=== PATIENT | male | born 1950 | race Caucasian/White ===

== ENCOUNTER 2021-10-22 11:03 | Emergency (ER) | payer MEDICARE, OTHER ==
[2021-10-22] MEDS ORDERED: NOREPINEPHRINE 4 MG in SODIUM CHLORIDE 0.9% 250 ML IV ONE (11:10)
[2021-10-22 11:15] VITALS: RESP 18
[2021-10-22 11:16] LABS: Glucose,Whole Blood 268 mg/dL (75-99)
[2021-10-22] MEDS ORDERED: SODIUM CHLORIDE 0.9% 500 ML 500 ML IV ONE (11:29)
[2021-10-22] MEDS ORDERED: SODIUM CHLORIDE 0.9% 1,000 ML IV SCH (11:30)
--- NOTE | 2021-10-22 11:32 | XR ---
EXAMINATION TYPE: XR chest 1V portable DATE OF EXAM: 10/22/2021 COMPARISON: NONE HISTORY: Postcardiac arrest TECHNIQUE: Single frontal view of the chest is obtained. FINDINGS: ET tube approximately 7.5 cm above frances. NG tube seen coursing the abdomen likely at the GE junction. Coarsened interstitium. Mediastinum is somewhat widened. I could not exclude a small ri ght pleural effusion. No sizable pneumothorax. Correlate for bilateral interstitial infiltrates or ve nous congestion. IMPRESSION: 1. NG tube is likely at the level the GE junction. Bilateral interstitial infiltrates correlate for i nterstitial pneumonia versus venous congestion. Likely a degree of COPD. 3. Mediastinum is widened with prominence of the aortic arch. Correlate with CT scan.
[2021-10-22 11:38] LABS: RBC 4.49 m/uL (4.30-5.90)
[2021-10-22 11:39] LABS: Basophils # (A) 0.1 k/uL (0-0.2); Basophils % (A) 1 %; Eosinophils # (A) 0.3 k/uL (0-0.7); Eosinophils % (A) 3 %; HCT 46.6 % (39.0-53.0); Hypochromasia Slight; Lymphocytes # (A) 3.2 k/uL (1.0-4.8); Lymphocytes % (A) 32 %; MCH 31.3 pg (25.0-35.0); MCHC 30.2 g/dL (31.0-37.0); MCV 103.9 fL (80.0-100.0); Macrocytosis Slight; Mean Platelet Volume 7.6; Monocytes # (A) 0.4 k/uL (0-1.0); Monocytes % (A) 4 %; Neutrophils # (A) 5.9 k/uL (1.3-7.7); Neutrophils % (A) 59 %; Platelet Count 187 k/uL (150-450); RDW 12.9 % (11.5-15.5)
[2021-10-22 11:42] LABS: INR 1.1 (<1.2); Prothrombin Time 11.9 sec (9.0-12.0)
[2021-10-22 11:43] LABS: Partial Thromboplastin Time 23.6 sec (22.0-30.0)
[2021-10-22 12:02] LABS: Albumin 3.4 g/dL (3.5-5.0); Calcium 7.9 mg/dL (8.4-10.2); Magnesium 2.1 mg/dL (1.6-2.3); Potassium 3.7 mmol/L (3.5-5.1); Total Bilirubin 0.5 mg/dL (0.2-1.3); Total Protein 5.4 g/dL (6.3-8.2)
[2021-10-22 12:09] LABS: ABG Base Excess -7.9 mmol/L; ABG HCO3 21 mmol/L (21-25); ABG Oxygen Saturation 97.3 % (94-97); ABG PCO2 62 mmHg (35-45); ABG PO2 113 mmHg (83-108); ABG TCO2 23 mmol/L (19-24); Allen Test Performed? Yes
--- NOTE | 2021-10-22 12:12 | CT ---
EXAMINATION TYPE: CT brain wo con DATE OF EXAM: 10/22/2021 COMPARISON: None INDICATION: Status post cardiac arrest DLP: 1169.4 mGycm, Automated exposure control for dose reduction was used. CONTRAST: None CT of the brain is performed utilizing 3 mm thick sections through the posterior fossa and 3 mm thick sections through the remaining calvarium. Study is performed within 24 hours of arrival to the hosp [facility]. Diffuse increase subarachnoid hemorrhage is present throughout the bilateral subarachnoid spaces. Rep ort was called to the emergency room physician Dr. Milan by Dr. Canales 1205 hours 10/22/2021. There is a hyperdense collection at the left hemisphere apex adjacent to the falx measuring 1.2 cm pr evious in the sulcus and is more likely related to subarachnoid hemorrhage. Tiny subdural hematoma wi thout mass effect could potentially be within the differential. No mass lesion is evident. No acute infarcts are evident. Ventricles and sulci are appropriate for the patient age. Small amount of hemorrhage may be within t he posterior horn lateral ventricles and third ventricle and fourth ventricle. No temporal horn dilat ation is evident. Paranasal sinuses and mastoid air cells within the [id number] are clear. Nasogastric tube appears to be present. IMPRESSIONS: 1. Large subarachnoid hemorrhage present bilaterally and diffusely. No focal area is more suspiciou s for localization of source. Some hemorrhage is within the ventricles discussed above.
[2021-10-22 12:18] LABS: ABG PH 7.14 (7.35-7.45)
[2021-10-22] MEDS ORDERED: levETIRAcetam IV 1,500 MG in SALINE 1 100ML.BAG IVPB STA (12:26)
--- NOTE | 2021-10-22 12:39 | CT ---
EXAMINATION TYPE: CT angio thor/abd pel aorta DATE OF EXAM: 10/22/2021 INDICATION: Cardiac arrest. CT DLP: 2648 mGy.cm Automated Exposure Control for Dose Reduction was Utilized. TECHNIQUE AND CONTRAST: CT scan of the chest, abdomen and pelvis is performed without and with IV Contrast, patient injected with 100ml mL of Isovue 370. CT thoracic and abdominal aortic protocol. 3-D reconstruction images wer e generated on an independent workstation and reviewed. COMPARISON: None available FINDINGS: The ascending aorta measures 4 cm. The aortic arch measured 3.3 cm. The descending thoracic aorta laura sures 3.2 cm. The upper abdominal aorta measures 3.7 cm. The lower abdominal aorta measures up to 2.4 cm. A nipple-like projection is seen at the anterior aspect of the aortic arch measuring up to 7 mm. Focal saccular aneurysm is seen arising from the inferior aspect of the aortic isthmus measuring 2.8 cm, likely representing the known aortic aneurysm. Extensive arterial atherosclerotic calcification and tortuosity with multiple atheromatous plaques. H ypoplastic left vertebral artery arising directly from the aortic arch. Reduced enhancement of the in ferior mesenteric artery. Ectatic left common iliac artery measuring up to 2.2 cm. No other significa nt arterial stenosis, occlusion, dissection or other aneurysm. No evidence for aortic rupture. No med iastinal hematoma or collection. No major or central pulmonary embolism. No gross cardiomegaly. No pericardial effusion. Endotracheal tube with the tip is about 4.8 cm proximal to the frances. NG tube with the tip is at the gastroesopha geal junction, further introduction into the stomach is advised. Right femoral vein catheter is noted . Bilateral lower lobe consolidation with air bronchogram within which could be related to atelectasis however associated infection can't be excluded, please correlate clinically. Mild COPD changes. No pa thologically enlarged lymph nodes in the chest, abdomen or pelvis. Suspected hepatic steatosis. Janey lithiasis without evidence of acute cholecystitis. Unremarkable spleen, pancreas and adrenals. Bilateral renal cysts without suspicious feature. Cruz catheter is seen within the urinary bladder. Unremarkable prostate and seminal vesicles. Gaseous distention of the stomach. No evidence of bowel o bstruction. Scattered uncomplicated colonic diverticulosis. No sizable ascites. Left-sided scrotal hy drocele. Multiple bilateral anterior nondisplaced rib fractures. IMPRESSION: Thoracic and abdominal aortic aneurysms as described above. No evidence of aneurysmal rupture. No act adali bleeding seen in the chest, abdomen or the pelvis. Other multiple incidental findings and recomme ndations as detailed above.
--- NOTE | 2021-10-22 12:40 | ED ---
General Adult HPI - General Chief complaint: Cardiac Arrest/CPR Stated complaint: Cardiac Arrest Time Seen by Provider: 10/22/21 11:10 Source: patient, family, EMS, RN notes reviewed, old records reviewed Mode of arrival: EMS Limitations: altered mental status - History of Present Illness Initial comments: 71-year-old male presents as out of Hospital cardiac arrest. Patient apparently had suddenly collapsed in the garage. This was noticed by family apparently very quickly and CPR was initiated by family on scene. Upon arrival paramedics did continue CPR, the patient was intubated by paramedics and resuscitation efforts were guided by ACLS protocol. He received multiple doses of epinephrine and ultimately had return of spontaneous circulation. He was in asystole at the time of initial resuscitation. The family there have been no preceding symptoms. Patient was going about his usual day. He has no history of heart disease. He has history of abdominal aortic aneurysm. He is not currently on any anticoagulation. - Related Data Home Medications Medication Instructions Recorded Confirmed Atorvastatin [Lipitor] 20 mg PO HS 10/22/21 10/22/21 Doxazosin [Cardura] 4 mg PO DAILY 10/22/21 10/22/21 Ezetimibe [Zetia] 10 mg PO DAILY 10/22/21 10/22/21 Finasteride [Proscar] 5 mg PO DAILY 10/22/21 10/22/21 Multivitamins, Thera [Multivitamin 1 tab PO DAILY 10/22/21 10/22/21 (formulary)] Naproxen 500 mg PO BID 10/22/21 10/22/21 Pantoprazole [Protonix] 40 mg PO HS 10/22/21 10/22/21 methocarbamoL [Methocarbamol] 500 mg PO BID 10/22/21 10/22/21 Allergies Allergy/AdvReac Type Severity Reaction Status Date / Time No Known Allergies Allergy Verified 10/22/21 11:14 Review of Systems ROS Statement: Those systems with pertinent positive or pertinent negative responses have been documented in the HPI. ROS Other: All systems not noted in ROS Statement are negative. Past Medical History Past Medical History: Unable to Obtain History of Any Multi-Drug Resistant Organisms: None Reported Past Surgical History: Unable to Obtain Past Psychological History: Unable to Obtain Smoking Status: Unknown if ever smoked Past Alcohol Use History: Unable to Obtain Past Drug Use History: Unable to Obtain General Exam Limitations: no limitations General appearance: obtunded, other (Obtunded. No Spontaneous movement) Eye exam: Present: other (4 mm bilaterally, very sluggish) ENT exam: Present: other (Intubated) Respiratory exam: Present: other (Bilateral breath sounds with BVM) Cardiovascular Exam: Present: regular rate, normal rhythm GI/Abdominal exam: Present: soft. Absent: distended Extremities exam: Absent: normal capillary refill, calf tenderness Neurological exam: Present: other (No spontaneous movement, does not withdraw to pain). Absent: alert, altered, oriented X3, motor sensory deficit Skin exam: Present: warm, dry Course Vital Signs 10/22/21 10/22/21 10/22/21 11:05 11:13 11:19 Pulse Rate 150 H 121 H Respiratory 18 18 Rate Blood Pressure 59/34 158/93 O2 Sat by Pulse 88 L Oximetry Fraction of 100 Inspired Oxygen (FIO2) 10/22/21 10/22/21 10/22/21 11:20 11:24 11:28 Pulse Rate 98 96 Respiratory 18 18 Rate Blood Pressure 74/52 80/67 O2 Sat by Pulse 97 96 Oximetry Fraction of 100 Inspired Oxygen (FIO2) 10/22/21 10/22/21 10/22/21 11:31 11:35 11:40 Pulse Rate 93 92 89 Respiratory 18 18 18 Rate Blood Pressure 83/59 96/53 110/75 O2 Sat by Pulse 97 98 97 Oximetry Fraction of Inspired Oxygen (FIO2) 10/22/21 10/22/21 10/22/21 11:45 11:50 11:55 Pulse Rate 91 82 87 Respiratory 18 18 18 Rate Blood Pressure 116/70 123/87 142/103 O2 Sat by Pulse 97 97 97 Oximetry Fraction of Inspired Oxygen (FIO2) 10/22/21 10/22/21 10/22/21 12:00 12:05 12:10 Pulse Rate 72 68 61 Respiratory 18 18 18 Rate Blood Pressure 147/87 152/87 152/87 O2 Sat by Pulse 96 96 95 Oximetry Fraction of Inspired Oxygen (FIO2) 10/22/21 10/22/21 10/22/21 12:15 12:25 12:44 Pulse Rate 56 L 48 L 44 L Respiratory 18 18 18 Rate Blood Pressure 137/82 132/80 124/94 O2 Sat by Pulse 96 96 97 Oximetry Fraction of Inspired Oxygen (FIO2) 10/22/21 10/22/21 13:00 13:19 Pulse Rate 45 L 47 L Respiratory 18 18 Rate Blood Pressure 118/99 110/97 O2 Sat by Pulse 98 97 Oximetry Fraction of Inspired Oxygen (FIO2) - Reevaluation(s) Reevaluation #1: 10/22/21 12:36 Blood pressure improved with norepinephrine. Reevaluation #2: 10/22/21 1130 Case discussed with cardiology regarding the ST segment depression and cardiac arrest, recommended supportive care at this time. EKG Findings - EKG Comments: EKG Findings:: Initial EKG sinus tachycardia rate of [address] segment depression in the inferior lateral precordial leads. UT interval 141, QRS duration 107, QTC 393. Repeat EKG at 1128, sinus rhythm with T-wave inversion in aVL rate of 95, UT interval 193, QRS duration 120, QTC 441 Procedures - Central Line Placement Right Femoral Consent Obtained: emergent situation Patient Placed on Monitor/Pulse Ox: Yes MD Prep: mask, gloves Central Line Prep: Chlorhexidine scrub Central Line Lumen Inserted: triple Bloods Obtained for Lab: Yes Central Line Position: good blood return, all ports aspirated, flushed, capped, sutured in place with nylon Dressing Applied: Tegaderm Patient Tolerated Procedure: well Complications: none Medical Decision Making - Medical Decision Making 71-year-old male with out of Hospital cardiac arrest. Patient's had minimal pulses upon arrival. Norepinephrine was immediately initiated on the patient did go into cardiac arrest again shortly after arrival. CPR was performed and there was again return of spontaneous circulation. Central line was placed. Laboratory studies obtained, patient was sent for CT imaging. Of the brain and his aorta. CT brain shows diffuse subarachnoid hemorrhage with intraventricular blood. Patient had history of aortic aneurysm the chest x-ray showed widened mediastinum. Given the PEA arrest and was concern for aortic pathology and CT angiogram of the aorta was performed. This was negative for rupture or dissection. 71-year-old male with cardiac arrest asystole and PEA. Patient is intubated, supportive measures provided including norepinephrine. Patient is not currently requiring any sedation. Is discussed with Aishwarya Macdonald, and Dr. Binh kim for neurosurgery and Andres Fritz. Both physicians will accept transfer. - Lab Data Result diagrams: 10/22/21 11:22 06/09/22 11:22 Lab Results 10/22/21 10/22/21 10/22/21 Range/Units 11:14 11:22 11:22 WBC 10.0 (3.8-10.6) k/uL RBC 4.49 (4.30-5.90) m/uL Hgb 14.0 (13.0-17.5) gm/dL Hct 46.6 (39.0-53.0) % MCV 103.9 H (80.0-100.0) fL MCH 31.3 (25.0-35.0) pg MCHC 30.2 L (31.0-37.0) g/dL RDW 12.9 (11.5-15.5) % Plt Count 187 (150-450) k/uL MPV 7.6 Neutrophils % 59 % Lymphocytes % 32 % Monocytes % 4 % Eosinophils % 3 % Basophils % 1 % Neutrophils # 5.9 (1.3-7.7) k/uL Lymphocytes # 3.2 (1.0-4.8) k/uL Monocytes # 0.4 (0-1.0) k/uL Eosinophils # 0.3 (0-0.7) k/uL Basophils # 0.1 (0-0.2) k/uL Hypochromasia Slight Macrocytosis Slight PT 11.9 (9.0-12.0) sec INR 1.1 (<1.2) APTT 23.6 (22.0-30.0) sec Sample Site ABG pH (7.35-7.45) ABG pCO2 (35-45) mmHg ABG pO2 (83-108) mmHg ABG HCO3 (21-25) mmol/L ABG Total CO2 (19-24) mmol/L ABG O2 Saturation (94-97) % ABG Base Excess mmol/L Cesario Test FiO2 % Sodium (137-145) mmol/L Potassium (3.5-5.1) mmol/L Chloride (98-107) mmol/L Carbon Dioxide (22-30) mmol/L Anion Gap mmol/L BUN (9-20) mg/dL Creatinine (0.66-1.25) mg/dL Est GFR (CKD-EPI)AfAm (>60 ml/min/1.73 sqM) Est GFR (CKD-EPI)NonAf (>60 ml/min/1.73 sqM) Glucose (74-99) mg/dL POC Glucose (mg/dL) 268 H (75-99) mg/dL POC Glu Brass Pickler ID Chapito Wallace Calcium (8.4-10.2) mg/dL Magnesium (1.6-2.3) mg/dL Total Bilirubin (0.2-1.3) mg/dL AST (17-59) U/L ALT (4-49) U/L Alkaline Phosphatase (38-126) U/L Troponin I (0.000-0.034) ng/mL Total Protein (6.3-8.2) g/dL Albumin (3.5-5.0) g/dL 10/22/21 10/22/21 10/22/21 Range/Units 11:22 11:22 12:06 WBC (3.8-10.6) k/uL RBC (4.30-5.90) m/uL Hgb (13.0-17.5) gm/dL Hct (39.0-53.0) % MCV (80.0-100.0) fL MCH (25.0-35.0) pg MCHC (31.0-37.0) g/dL RDW (11.5-15.5) % Plt Count (150-450) k/uL MPV Neutrophils % % Lymphocytes % % Monocytes % % Eosinophils % % Basophils % % Neutrophils # (1.3-7.7) k/uL Lymphocytes # (1.0-4.8) k/uL Monocytes # (0-1.0) k/uL Eosinophils # (0-0.7) k/uL Basophils # (0-0.2) k/uL Hypochromasia Macrocytosis PT (9.0-12.0) sec INR (<1.2) APTT (22.0-30.0) sec Sample Site lrad ABG pH 7.14 L* (7.35-7.45) ABG pCO2 62 H (35-45) mmHg ABG pO2 113 H (83-108) mmHg ABG HCO3 21 (21-25) mmol/L ABG Total CO2 23 (19-24) mmol/L ABG O2 Saturation 97.3 H (94-97) % ABG Base Excess -7.9 mmol/L Cesario Test Yes FiO2 100 % Sodium 139 (137-145) mmol/L Potassium 3.7 (3.5-5.1) mmol/L Chloride 105 (98-107) mmol/L Carbon Dioxide 18 L (22-30) mmol/L Anion Gap 16 mmol/L BUN 19 (9-20) mg/dL Creatinine 1.63 H (0.66-1.25) mg/dL Est GFR (CKD-EPI)AfAm 48 (>60 ml/min/1.73 sqM) Est GFR (CKD-EPI)NonAf 42 (>60 ml/min/1.73 sqM) Glucose 303 H (74-99) mg/dL POC Glucose (mg/dL) (75-99) mg/dL POC Glu Brass Pickler ID Calcium 7.9 L (8.4-10.2) mg/dL Magnesium 2.1 (1.6-2.3) mg/dL Total Bilirubin 0.5 (0.2-1.3) mg/dL AST 64 H (17-59) U/L ALT 51 H (4-49) U/L Alkaline Phosphatase 44 (38-126) U/L Troponin I 0.088 H* (0.000-0.034) ng/mL Total Protein 5.4 L (6.3-8.2) g/dL Albumin 3.4 L (3.5-5.0) g/dL Critical Care Time Critical Care Time: Yes Total Critical Care Time: 35 Disposition Clinical Impression: Cardiac arrest, Subarachnoid hemorrhage, Signs of return of spontaneous circulation Disposition: OTHER INSTITUTION NOT DEFINED Condition: Serious Is patient prescribed a controlled substance at d/c from ED?: No Referrals: Monique Madrid MD [Primary Care Provider] - 1-2 days Time of Disposition: 12:31 - Out of Hospital Transfer - Req. Specs Out of Hospital Transfer - Requested Specifics: Other Emergency Center ([facility]
[2021-10-22 19:42] VITALS: BP 99/61; PULSE 48; TEMP 97.8
== END 2021-10-22 14:37 | disposition other institution (70) ==
LOC: EC 11:03
DX: I46.9 Cardiac arrest, cause unspecified (principal); I60.9 Nontraumatic subarachnoid hemorrhage, unspecified
CPT/HCPCS: 36415; 36600; 94002; 93005; 80053; 82805; 83735; 84484; 85025; 85610; 85730; 71045; 70450; 71275; 74174; 99291; 36556; 92950; 31500; 96365; 96366; 96361; J2704; J1953; Q9967